=== PATIENT | male | born 1955 ===

== ENCOUNTER 2017-11-14 19:10 | Inpatient (IN) ==
[2017-11-14 19:57] LABS: Hematocrit 45.6 % (37.5-50.1); Hemoglobin 15.2 g/dL (12.9-16.9); Immature Granulocytes % 0.2 % (0-4); Lymphocytes % 31.9 %; Mean Corpuscular HGB Conc 33.3 g/dL (31.6-35.5); Mean Corpuscular Hemoglobin 28.4 pg (28.0-33.3); Mean Corpuscular Volume 85.2 fL (83.0-100.0); Mean Platelet Volume 10.1 fL (9.4-12.4); Platelet Count 261 K/mcL (140-400); Red Blood Count 5.35 M/mcL (4.19-5.50); Red Cell Distribution Width 14.6 % (11.5-14.5); Segmented Neutrophils % 59.3 %
[2017-11-14 19:58] LABS: Basophils % 0.3 %; Eosinophils # 0.1 K/mcL (0.0-0.6); Eosinophils % 1.3 %; Lymphocytes # 3.3 K/mcL (0.6-4.6); Monocytes # 0.7 K/mcL (0.0-1.3); Neutrophils # 6.1 K/mcL (1.6-8.9)
[2017-11-14 20:03] LABS: Prothrombin Time 10.9 Seconds (9.4-12.1)
[2017-11-14 20:06] LABS: Activated Partial Thrombo Time 30.4 Seconds (26.0-36.0)
[2017-11-14] MEDS ORDERED: 0.9 % Sodium Chloride 500 ML IVC ONE ×2 (20:09→20:51)
[2017-11-14 20:19] LABS: BUN/Creatinine Ratio 13 (6-26); Blood Urea Nitrogen 21 mg/dL (8-23); Carbon Dioxide 27 mEq/L (23-29); Chloride 99 mEq/L (98-107); Glucose 210 mg/dL (70-105); Osmolality,Calculated 289 (280-300); Potassium 4.4 mEq/L (3.5-5.1); Sodium 135 mEq/L (136-145); Troponin I < 0.03 ng/mL (< 0.04); eGFR For African Americans 54 (> 60); eGFR For Non-African Americans 45 (> 60)
[2017-11-14] MEDS ORDERED: 0.9 % Sodium Chloride 1,000 ML ONE (20:22)
--- NOTE | 2017-11-14 20:29 | Emergency Department Note ---
Disposition Clinical Impression: Orthostatic dizziness, Near syncope Acute renal failure Qualifiers: Acute renal failure type: unspecified Qualified Code(s): N17.9 - Acute kidney failure, unspecified Disposition: Admitted As Inpatient Condition: Good Time of Disposition: 23:33 Dizziness HPI - General Chief Complaint: ED Shortness of Breath/Dyspnea Stated Complaint: short of breath Time Seen by Provider: 11/14/17 20:02 Source: patient, family Limitations: no limitations Nursing Notes Reviewed: Yes Vital Signs Reviewed: Yes - History of Present Illness HPI Narrative: This is a 62 year-old male with history of HTN, HLD, COPD and 4L home O2, CAD/ CT with multiple stents. He presents with orthostatic dizziness for the past 2 weeks, worse today. He says that whenever he stands up, he feels like he's going to pass out. He denies any actual syncopal episodes. He also reports dyspnea and cough, both of which are described as chronic. He has had headaches intermittently for 2-3 days. Also, brief episodes of chest pain, lasting 5-6 minutes, not clearly exertional in nature, described as chronic. He denies any recent fever, abdominal pain, vomiting, diarrhea, hematochezia, melena, leg pain or swelling. Pt Subjective Complaint: dizziness, lightheadedness, near syncope Onset (ago): week(s) (2) Timing: sudden onset, gradual onset Description: lightheadedness, near-syncope History of trauma: No Severity: moderate Improves with: rest Worsens with: position Associated symptoms: Reports: chest pain (brief, intermittent), malaise, shortness of breath (chronic), weakness (generalized). Denies: fever, chills, syncope, vision changes, nausea, vomiting, palpitations - Related Data Home Medications Medication Instructions Recorded Confirmed Aspirin [Lo-Dose Aspirin EC] 81 mg PO DAILY 11/15/17 11/15/17 Atorvastatin Calcium [Lipitor] 60 mg PO DAILY 11/15/17 11/15/17 Cholecalciferol (Vitamin D3) 1,000 unit PO DAILY 11/15/17 11/15/17 [Vitamin D] Clopidogrel [Plavix] 75 mg PO DAILY 11/15/17 11/15/17 GlipiZIDE [Glipizide Xl] 5 mg PO BID 11/15/17 11/15/17 Magnesium Oxide [Magnesium] 400 mg PO DAILY 11/15/17 11/15/17 Metformin HCl [Glucophage] 1,000 mg PO BID 11/15/17 11/15/17 Metoprolol [Lopressor] 50 mg PO BID 11/15/17 11/15/17 Pantoprazole Sodium [Protonix] 40 mg PO DAILY 11/15/17 11/15/17 Allergies Allergy/AdvReac Type Severity Reaction Status Date / Time nitroglycerin Allergy See Verified 11/14/17 19:33 Comments Penicillins Allergy See Verified 11/14/17 19:33 Comments All systems ED: reviewed and negative except as stated. Constitutional: Reports: as per HPI, weakness (generalized). Denies: fever Cardiovascular: Reports: as per HPI, chest pain (episodic). Denies: palpitations, edema, syncope Respiratory: Reports: cough (chronic), dyspnea (chronic). Denies: wheezes, hemoptysis Gastrointestinal: Reports: as per HPI, abdominal pain. Denies: nausea, vomiting , diarrhea, constipation, hematemesis, melena, hematochezia Musculoskeletal: Denies: back pain Neurological: Reports: as per HPI, headache. Denies: weakness (none focal), numbness (none focal) Past Medical History - Past Medical History Medical history: Reports: COPD, diabetes, hyperlipidemia, hypertension, myocardial infarction - Social History Smoking Status: Current every day smoker Smokeless Tobacco Status: No Alcohol use: Reports: occasionally Drug use: Reports: none Physical Exam - General Limitations: no limitations General appearance: alert, in no apparent distress - Head Head exam: atraumatic, normocephalic - Eye Eye exam: Present: normal appearance, PERRL, EOMI - ENT ENT exam: normal exam - Neck Neck exam: Present: normal inspection. Absent: meningismus - Respiratory Respiratory exam: Present: other (diminished throughout). Absent: respiratory distress, wheezes - Cardiovascular Cardiovascular exam: Present: regular rate, normal rhythm, normal heart sounds - Abdominal Exam Abdominal exam: Present: soft, Non-Tender. Absent: distention, guarding, rebound, rigidity - Extremities Exam Extremities exam: Present: normal inspection. Absent: pedal edema, calf tenderness - Neurological Exam Neurological exam: Present: alert, oriented X3, CN II-XII intact. Absent: motor sensory deficit - Psychiatric Psychiatric exam: Present: flat affect - Skin Skin exam: Present: warm, dry, intact Course - Reevaluation(s) Reevaluation #1: Patient states that he's "feeling a lot better." Awaiting VQ results and UA. Time: 22:33 Reevaluation #2: Discussed test results with patient. He's feeling much better. BP 126/77. Previous BP was normal. Awaiting VQ scan report. Time: 22:48 - Consultations Consultation #1: Reviewed case with Dr. Melgar, and patient accepted for admission. Time: 23:51 Vital Signs Temperature 98 F 11/14/17 19:11 Pulse Rate 107 11/14/17 19:11 Respiratory Rate 20 11/14/17 19:11 Blood Pressure 99/65 11/14/17 19:11 O2 Sat by Pulse Oximetry 99 11/14/17 19:11 Temperature 97.9 F 11/15/17 02:40 Pulse Rate 66 11/15/17 02:40 Respiratory Rate 16 11/15/17 02:40 Blood Pressure 135/75 11/15/17 02:40 O2 Sat by Pulse Oximetry 92 11/15/17 02:40 Oxygen Delivery Oxygen Delivery Room Air Dizziness - Lab Data Lab results reviewed: Yes I reviewed the patient's lab results. Result diagrams: 11/15/17 01:35 11/15/17 01:35 Lab Results 11/14/17 11/14/17 11/14/17 Range/Units 19:27 19:44 19:44 WBC 10.3 (4.3-11.1) K/mcL RBC 5.35 (4.19-5.50) M/mcL Hgb 15.2 (12.9-16.9) g/dL Hct 45.6 (37.5-50.1) % MCV 85.2 (83.0-100.0) fL MCH 28.4 (28.0-33.3) pg MCHC 33.3 (31.6-35.5) g/dL RDW 14.6 H (11.5-14.5) % Plt Count 261 (140-400) K/mcL MPV 10.1 (9.4-12.4) fL Immature Gran % 0.2 (0-4) % Seg Neutrophils % 59.3 % Lymphocytes % 31.9 % Monocytes % 7.0 % Eosinophils % 1.3 % Basophils % 0.3 % Neutrophils # 6.1 (1.6-8.9) K/mcL Lymphocytes # 3.3 (0.6-4.6) K/mcL Monocytes # 0.7 (0.0-1.3) K/mcL Eosinophils # 0.1 (0.0-0.6) K/mcL Basophils # 0.0 (0.0-0.2) K/mcL PT 10.9 (9.4-12.1) Seconds INR 1.0 APTT 30.4 (26.0-36.0) Seconds D-Dimer (0-500) ng/mLFEU Sodium (136-145) mEq/L Potassium (3.5-5.1) mEq/L Chloride (98-107) mEq/L Carbon Dioxide (23-29) mEq/L BUN (8-23) mg/dL Creatinine (0.70-1.30) mg/dL Est GFR ( Amer) (> 60) Est GFR (Non-Af Amer) (> 60) BUN/Creatinine Ratio (6-26) Glucose (70-105) mg/dL Calculated Osmolality (280-300) Lactic Acid 2.8 H (0.5-2.2) mmol/L Calcium (8.6-10.3) mg/dL Magnesium (1.6-2.6) mg/dL Troponin I (< 0.04) ng/mL B-Natriuretic Peptide (Less than 100) pg/mL TSH (0.340-5.600) mcIU/mL Urine Color (Yellow) Urine Clarity (Clear) Urine pH (5.0-8.0) pH Units Ur Specific [place] (1.010-1.025) Urine Protein (Neg-Trace) mg/dL Urine Glucose (UA) (Normal) mg/dL Urine Ketones (Negative) mg/dL Urine Blood (Negative) Urine Nitrite (Negative) Urine Bilirubin (Negative) Urine Urobilinogen (Normal) mg/dL Ur Leukocyte Esterase (Negative) Urine Microscopic RBC (0-3) per hpf Urine Microscopic WBC (0-3) per hpf Ur Squamous Epith Cells (None-Few) per lpf Urine Bacteria (None-Few) per hpf Hyaline Casts (None-Few) per lpf Ur Culture Indicated? (NO) 11/14/17 11/14/17 11/14/17 Range/Units 19:44 19:44 19:44 WBC (4.3-11.1) K/mcL RBC (4.19-5.50) M/mcL Hgb (12.9-16.9) g/dL Hct (37.5-50.1) % MCV (83.0-100.0) fL MCH (28.0-33.3) pg MCHC (31.6-35.5) g/dL RDW (11.5-14.5) % Plt Count (140-400) K/mcL MPV (9.4-12.4) fL Immature Gran % (0-4) % Seg Neutrophils % % Lymphocytes % % Monocytes % % Eosinophils % % Basophils % % Neutrophils # (1.6-8.9) K/mcL Lymphocytes # (0.6-4.6) K/mcL Monocytes # (0.0-1.3) K/mcL Eosinophils # (0.0-0.6) K/mcL Basophils # (0.0-0.2) K/mcL PT (9.4-12.1) Seconds INR APTT (26.0-36.0) Seconds D-Dimer 3337 H (0-500) ng/mLFEU Sodium 135 L (136-145) mEq/L Potassium 4.4 (3.5-5.1) mEq/L Chloride 99 (98-107) mEq/L Carbon Dioxide 27 (23-29) mEq/L BUN 21 (8-23) mg/dL Creatinine 1.58 H (0.70-1.30) mg/dL Est GFR ( Amer) 54 L (> 60) Est GFR (Non-Af Amer) 45 L (> 60) BUN/Creatinine Ratio 13 (6-26) Glucose 210 H (70-105) mg/dL Calculated Osmolality 289 (280-300) Lactic Acid (0.5-2.2) mmol/L Calcium 10.0 (8.6-10.3) mg/dL Magnesium (1.6-2.6) mg/dL Troponin I < 0.03 (< 0.04) ng/mL B-Natriuretic Peptide 42 (Less than 100) pg/mL TSH (0.340-5.600) mcIU/mL Urine Color (Yellow) Urine Clarity (Clear) Urine pH (5.0-8.0) pH Units Ur Specific [place] (1.010-1.025) Urine Protein (Neg-Trace) mg/dL Urine Glucose (UA) (Normal) mg/dL Urine Ketones (Negative) mg/dL Urine Blood (Negative) Urine Nitrite (Negative) Urine Bilirubin (Negative) Urine Urobilinogen (Normal) mg/dL Ur Leukocyte Esterase (Negative) Urine Microscopic RBC (0-3) per hpf Urine Microscopic WBC (0-3) per hpf Ur Squamous Epith Cells (None-Few) per lpf Urine Bacteria (None-Few) per hpf Hyaline Casts (None-Few) per lpf Ur Culture Indicated? (NO) 11/14/17 11/14/17 11/15/17 Range/Units 21:26 21:44 00:03 WBC (4.3-11.1) K/mcL RBC (4.19-5.50) M/mcL Hgb (12.9-16.9) g/dL Hct (37.5-50.1) % MCV (83.0-100.0) fL MCH (28.0-33.3) pg MCHC (31.6-35.5) g/dL RDW (11.5-14.5) % Plt Count (140-400) K/mcL MPV (9.4-12.4) fL Immature Gran % (0-4) % Seg Neutrophils % % Lymphocytes % % Monocytes % % Eosinophils % % Basophils % % Neutrophils # (1.6-8.9) K/mcL Lymphocytes # (0.6-4.6) K/mcL Monocytes # (0.0-1.3) K/mcL Eosinophils # (0.0-0.6) K/mcL Basophils # (0.0-0.2) K/mcL PT (9.4-12.1) Seconds INR APTT (26.0-36.0) Seconds D-Dimer (0-500) ng/mLFEU Sodium (136-145) mEq/L Potassium (3.5-5.1) mEq/L Chloride (98-107) mEq/L Carbon Dioxide (23-29) mEq/L BUN (8-23) mg/dL Creatinine (0.70-1.30) mg/dL Est GFR ( Amer) (> 60) Est GFR (Non-Af Amer) (> 60) BUN/Creatinine Ratio (6-26) Glucose (70-105) mg/dL Calculated Osmolality (280-300) Lactic Acid 1.9 1.1 (0.5-2.2) mmol/L Calcium (8.6-10.3) mg/dL Magnesium (1.6-2.6) mg/dL Troponin I (< 0.04) ng/mL B-Natriuretic Peptide (Less than 100) pg/mL TSH (0.340-5.600) mcIU/mL Urine Color Dark Yellow (Yellow) Urine Clarity Clear (Clear) Urine pH 5.5 (5.0-8.0) pH Units Ur Specific [place] 1.023 (1.010-1.025) Urine Protein Trace (Neg-Trace) mg/dL Urine Glucose (UA) 500 H (Normal) mg/dL Urine Ketones Trace H (Negative) mg/dL Urine Blood Negative (Negative) Urine Nitrite Negative (Negative) Urine Bilirubin Small H (Negative) Urine Urobilinogen Normal (Normal) mg/dL Ur Leukocyte Esterase Negative (Negative) Urine Microscopic RBC 5-15 H (0-3) per hpf Urine Microscopic WBC 3-5 H (0-3) per hpf Ur Squamous Epith Cells Many H (None-Few) per lpf Urine Bacteria None Seen (None-Few) per hpf Hyaline Casts None Seen (None-Few) per lpf Ur Culture Indicated? NO (NO) 11/15/1718 11/15/17 Range/Units 01:35 01:35 01:35 WBC 8.9 (4.3-11.1) K/mcL RBC 4.40 (4.19-5.50) M/mcL Hgb 12.9 D (12.9-16.9) g/dL Hct 37.9 (37.5-50.1) % MCV 86.1 (83.0-100.0) fL MCH 29.3 (28.0-33.3) pg MCHC 34.0 (31.6-35.5) g/dL RDW 14.5 (11.5-14.5) % Plt Count 218 (140-400) K/mcL MPV 10.0 (9.4-12.4) fL Immature Gran % 0.1 (0-4) % Seg Neutrophils % 51.5 % Lymphocytes % 40.1 % Monocytes % 6.5 % Eosinophils % 1.6 % Basophils % 0.2 % Neutrophils # 4.6 (1.6-8.9) K/mcL Lymphocytes # 3.6 (0.6-4.6) K/mcL Monocytes # 0.6 (0.0-1.3) K/mcL Eosinophils # 0.1 (0.0-0.6) K/mcL Basophils # 0.0 (0.0-0.2) K/mcL PT (9.4-12.1) Seconds INR APTT (26.0-36.0) Seconds D-Dimer (0-500) ng/mLFEU Sodium 135 L (136-145) mEq/L Potassium 4.7 (3.5-5.1) mEq/L Chloride 104 (98-107) mEq/L Carbon Dioxide 26 (23-29) mEq/L BUN 24 H (8-23) mg/dL Creatinine 1.32 H (0.70-1.30) mg/dL Est GFR ( Amer) > 60 (> 60) Est GFR (Non-Af Amer) 55 L (> 60) BUN/Creatinine Ratio 18 (6-26) Glucose 137 H (70-105) mg/dL Calculated Osmolality 286 (280-300) Lactic Acid (0.5-2.2) mmol/L Calcium 9.0 (8.6-10.3) mg/dL Magnesium 1.8 (1.6-2.6) mg/dL Troponin I < 0.03 (< 0.04) ng/mL B-Natriuretic Peptide (Less than 100) pg/mL TSH 1.803 (0.340-5.600) mcIU/mL Urine Color (Yellow) Urine Clarity (Clear) Urine pH (5.0-8.0) pH Units Ur Specific [place] (1.010-1.025) Urine Protein (Neg-Trace) mg/dL Urine Glucose (UA) (Normal) mg/dL Urine Ketones (Negative) mg/dL Urine Blood (Negative) Urine Nitrite (Negative) Urine Bilirubin (Negative) Urine Urobilinogen (Normal) mg/dL Ur Leukocyte Esterase (Negative) Urine Microscopic RBC (0-3) per hpf Urine Microscopic WBC (0-3) per hpf Ur Squamous Epith Cells (None-Few) per lpf Urine Bacteria (None-Few) per hpf Hyaline Casts (None-Few) per lpf Ur Culture Indicated? (NO) - Radiology Data Radiology results reviewed: Yes I reviewed the patient's radiology results. NM/NM pul vent and perfuse IMPRESSION: Low probability for pulmonary embolus. XR/XR chest 1V portable IMPRESSION: No acute process. CT/CT head/brain wo con IMPRESSION: No acute intracranial abnormality. - EKG Data EKG attestation: Yes I reviewed and interpreted this EKG. EKG shows normal: sinus rhythm Rate: normal Rhythm: NSR ST segment elevation in: II T wave inversions noted in: aVL When compared to previous EKG there are: no significant changes Interpretation: nonspecific ST-T wave changes
[2017-11-14 21:35] LABS: Bilirubin,Urine Small (Negative); Blood,Urine Negative (Negative); Clarity,Urine Clear (Clear); Color,Urine Dark Yellow (Yellow); Glucose,Urine (UA) 500 mg/dL (Normal); Ketones,Urine Trace mg/dL (Negative); Leukocyte Esterase,Urine Negative (Negative); Nitrite,Urine Negative (Negative); PH,Urine 5.5 pH Units (5.0-8.0); Protein,Urine Trace mg/dL (Neg-Trace); Specific Gravity,Urine 1.023 (1.010-1.025); Urobilinogen,Urine Normal (Normal)
[2017-11-14 21:36] LABS: Bacteria,Urine None Seen per hpf (None-Few); Hyaline Casts,Urine None Seen per lpf (None-Few); Squamous Epithelial Cell,Urine Many per lpf (None-Few)
[2017-11-14] MEDS ORDERED: D5% in Water 1,000 ML IVC PRN (23:55)
[2017-11-14] MEDS ORDERED: Dextrose Gel 15 GM/37.5 ML TUBE PO PRN ×2 (23:55)
[2017-11-14] MEDS ORDERED: *HR* Dextrose 50 % in Water (Syg) 50 ML SYRINGE IVP PRN (23:55)
[2017-11-15] MEDS ORDERED: Acetaminophen 325 MG TABLET PO PRN (00:02)
[2017-11-15] MEDS ORDERED: Naloxone 0.4 MG/ML INJ IVP PRN (00:02)
--- NOTE | 2017-11-15 00:12 | Internal Med History&Physical ---
Date of Encounter: 11/15/17 Time of Encounter: 00:07 Internal Medicine - H&P: HPI Chief complaint: Dizziness Admitted From: Emergency Dept Plans for Post Hospital Care: Home History of present illness: Mr. Willoughby is a 62 year old male with history of HTN, HLD, COPD on nocturnal home O2, CAD/MA with multiple stents who presents with complaints of dizziness for a couple of weeks or so. This has worsened today that he came in to get evaluated. It is usually upon standing. No syncopal episodes. ED reported intermittent chest pain for about 5 min or so with no radiation and non- exertional. The patient denies this to me. Reports dyspnea and a cough but he also says he has a chronic cough and this is not new. Denies fever/chills/nausea /vomiting/diarrhea/constipation/abdominal pain/urinary symptoms/or neurological symptoms. Patient's work up showed TABATHA and lactic acidosis. Lactic acidosis corrected with IV fluids. Patient recieved a couple of boluses in the ED. He was hypotensive into the 80s systolically initially but was in the 120s when I got there. EKG and trops unremarkable. D-dimers were checked and were elevated. No CTA done due to TABATHA. V/Q came back with low probability. UA not indicative of UTI. Past Med Surg Social Fam HX - Past Medical History Medical history: COPD, diabetes, hyperlipidemia, hypertension, myocardial infarction - Social History Smoking Status: Current every day smoker Smokeless Tobacco Status: No Alcohol use: occasionally Drug use: none Internal Medicine - H&P: Meds Aspirin [Lo-Dose Aspirin EC] 81 mg PO DAILY 11/15/17 [History] Atorvastatin Calcium [Lipitor] 60 mg PO DAILY 11/15/17 [History] Cholecalciferol (Vitamin D3) [Vitamin D] 1,000 unit PO DAILY 11/15/17 [History] Clopidogrel [Plavix] 75 mg PO DAILY 11/15/17 [History] GlipiZIDE [Glipizide Xl] 5 mg PO BID 11/15/17 [History] Magnesium Oxide [Magnesium] 400 mg PO DAILY 11/15/17 [History] Metformin HCl [Glucophage] 1,000 mg PO BID 11/15/17 [History] Metoprolol [Lopressor] 50 mg PO BID 11/15/17 [History] Pantoprazole Sodium [Protonix] 40 mg PO DAILY 11/15/17 [History] 3 Allergy/AdvReac Type Severity Reaction Status Date / Time nitroglycerin Allergy See Verified 11/14/17 19:33 Comments Penicillins Allergy See Verified 11/14/17 19:33 Comments All Systems PM: A 10-system review of systems was performed and is negative for pertinent findings except as documented above in the HPI. Review of systems: All systems reviewed are negative except for mentioned above - Constitutional Vitals: Temp Pulse Resp BP Pulse Ox 98 F 68 12 137/73 94 11/14/17 19:31 11/14/17 22:57 11/14/17 22:57 11/14/17 22:57 11/14/17 22:57 Exam: GEN: NAD HEENT: AT, NC, No cyanosis, oral mucosa is moist, No JVD Lymphatics: No lymphadenoapthy Eyes: Extrocular muscles intact, anicteric CVS:RRR. S1, S2, No m/r/g RESP: CTAB ABD: Soft, NT, ND, +BS EXT: No edema, No rashes, 2+ DP NEURO: Nonfocal, CN II-XII intact, No focal motor or sensory deficits Psych: Cooperative, Not anxious or depressed Internal Med - H&P Results - Labs CBC & Chem 7: 11/14/17 19:44 11/14/17 19:44 Labs: Short CBC 11/14/17 Range/Units 19:44 WBC 10.3 (4.3-11.1) K/mcL Hgb 15.2 (12.9-16.9) g/dL Hct 45.6 (37.5-50.1) % Plt Count 261 (140-400) K/mcL Neutrophils # 6.1 (1.6-8.9) K/mcL BMP 11/14/17 19:44 Sodium 135 L Potassium 4.4 Chloride 99 Carbon Dioxide 27 BUN 21 Creatinine 1.58 H Glucose 210 H Calcium 10.0 Cardiac Enzymes 11/14/17 Range/Units 19:44 Troponin I < 0.03 (< 0.04) ng/mL Urine 11/14/17 Range/Units 21:26 Urine Color Dark Yellow (Yellow) Urine Clarity Clear (Clear) Urine pH 5.5 (5.0-8.0) pH Units Ur Specific [place] 1.023 (1.010-1.025) Urine Protein Trace (Neg-Trace) mg/dL Urine Glucose (UA) 500 H (Normal) mg/dL - Impressions ITS Impressions Chest X-Ray 11/14/17 19:44 IMPRESSION: No acute process. D/ / You Hernández MD / You Hernández MD Interpreting Provider: You Hernández MD Head CT 11/14/17 21:13 IMPRESSION: No acute intracranial abnormality. D/ / Danie Mayen MD / Danie Mayen MD Interpreting Provider: Danie Mayen MD Pulmonary Perfusion Imaging 11/14/17 21:15 IMPRESSION: Low probability for pulmonary embolus. D/ / Danie Mayen MD / Danie Mayen MD Interpreting Provider: Danie Mayen MD - Assessment and plan (1) Orthostatic dizziness Current Visit: Yes Status: Acute Assessment and plan: Patient likely has orthostatic hypotension causing his symptoms. We will check orthostatics. Check TSH. Check echocardiogram. No signs of infection. EKG is sinus rhythm with no ischemic changes. No arrhythmias noted. We will place the patient on telemetry and trend his cardiac enzymes. The patient will need to be hydrated and have started him on in his fluids. He received a couple of boluses in the ED. Antihypertensives may need to be adjusted prior to discharge. (2) Acute renal failure Current Visit: Yes Status: Acute Assessment and plan: Likely secondary to hypotension. Hold nephrotoxins. IV fluids. Labs in the a.m. Qualifiers: Acute renal failure type: unspecified Qualified Code(s): N17.9 - Acute kidney failure, unspecified (3) Lactic acidosis Current Visit: Yes Status: Acute Assessment and plan: Resolved with hydration. (4) CAD (coronary artery disease) Current Visit: Yes Status: Acute Assessment and plan: Continue with cardiac meds but hold beta dann and lisinopril for now given hypotension. Qualifiers: Coronary Disease-Associated Artery/Lesion type: [place] artery [place] vs. transplanted heart: [place] heart Associated angina: without angina Qualified Code(s): I25.10 - Atherosclerotic heart disease of [place] coronary artery without angina pectoris (5) COPD (chronic obstructive pulmonary disease) Current Visit: Yes Status: Acute Assessment and plan: Resume home inhalers. Patient is not in exacerbation. Qualifiers: COPD type: emphysema Emphysema type: unspecified Qualified Code(s): J43.9 - Emphysema, unspecified (6) HTN (hypertension) Current Visit: Yes Status: Acute Assessment and plan: Hold antihypertensives for now. Qualifiers: Hypertension type: essential hypertension Qualified Code(s): I10 - Essential (primary) hypertension (7) Diabetes mellitus Current Visit: Yes Status: Acute Assessment and plan: We will place the patient on insulin sliding scale. Accu-Cheks. Qualifiers: Diabetes mellitus type: type 2 Diabetes mellitus usp insulin use: without usp use Diabetes mellitus complication status: without complication Qualified Code(s): E11.9 - Type 2 diabetes mellitus without complications (8) DVT prophylaxis Current Visit: Yes Status: Acute Assessment and plan: Heparin subcutaneous - Time Spent With Patient Total time spent is greater than 50% in coordination of care (as documented) at patient's floor/unit and/or counseling patient:
[2017-11-15 01:54] LABS: Basophils % 0.2 %; Eosinophils # 0.1 K/mcL (0.0-0.6); Eosinophils % 1.6 %; Hematocrit 37.9 % (37.5-50.1); Immature Granulocytes % 0.1 % (0-4); Lymphocytes # 3.6 K/mcL (0.6-4.6); Lymphocytes % 40.1 %; Mean Corpuscular Hemoglobin 29.3 pg (28.0-33.3); Mean Corpuscular Volume 86.1 fL (83.0-100.0); Monocytes # 0.6 K/mcL (0.0-1.3); Monocytes % 6.5 %; Neutrophils # 4.6 K/mcL (1.6-8.9); Platelet Count 218 K/mcL (140-400); Red Cell Distribution Width 14.5 % (11.5-14.5); Segmented Neutrophils % 51.5 %
[2017-11-15 01:58] LABS: Hemoglobin 12.9 g/dL (12.9-16.9)
[2017-11-15 02:16] LABS: BUN/Creatinine Ratio 18 (6-26); Blood Urea Nitrogen 24 mg/dL (8-23); Carbon Dioxide 26 mEq/L (23-29); Chloride 104 mEq/L (98-107); Glucose 137 mg/dL (70-105); Magnesium 1.8 mg/dL (1.6-2.6); Osmolality,Calculated 286 (280-300); Potassium 4.7 mEq/L (3.5-5.1); Sodium 135 mEq/L (136-145); eGFR For African Americans > 60 (> 60); eGFR For Non-African Americans 55 (> 60)
[2017-11-15 02:28] LABS: Thyroid Stimulating Hormone 1.803 mcIU/mL (0.340-5.600)
[2017-11-15] MEDS: *HR* Heparin 5,000 UNIT/ML VIAL SQ SCH ×3 (05:42→21:48)
[2017-11-15] MEDS: 0.9 % Sodium Chloride 1,000 ML IVC SCH ×2 (05:43→15:53)
[2017-11-15] MEDS: Insulin LISPRO 300 UNITS/3 ML VIAL SQ SCH ×4 (08:59→21:47)
[2017-11-15] MEDS: Aspirin Enteric Coated 81 MG Tablet PO SCH (08:59)
--- NOTE | 2017-11-15 09:33 | Event Note ---
Date of Encounter: 11/15/17 Time of Encounter: 09:29 Seen patient Hx of CAD/LA s/p stents, TIA, COPD on 2 L [facility] patient Presenting with: TABATHA Hypotensive, dizziness - symptomatic - no overt localizing source or explanation for pre-renal TABATHA, hypotension, dizziness - sepsis screen negative to date - blood cx pend Trial IVF to replete vol for now Trend labs
[2017-11-15] MEDS: Cholecalciferol (D-3) 1,000 UNIT TABLET PO SCH (12:36)
--- NOTE | 2017-11-15 17:17 | Electrocardiograph Report ---
[place] [id number] Test Date: 2017-11-14 Pat Name: Cayden Willoughby Department: 103 Room: [facility] Gender: M [employer]rer Journe[employer]: : 1955 Requested By: Mina Menard Order Number: [id number] Reading MD: Heike Smith Measurements Intervals [place] Rate: 83 P: 63 UT: 164 QRS: 64 QRSD: 89 T: 75 QT: 343 QTc: 383 Interpretive Statements SINUS RHYTHM ABNORMAL ST SEGMENTS INFERIORLY (PREVIOUSLY SEEN) RECOMMEND CLINICAL CORRELATION Electronically Signed On 11-15-2017 17:15:59 EDT by Heike Smith
[2017-11-16] MEDS: *HR* Heparin 5,000 UNIT/ML VIAL SQ SCH ×3 (05:39→22:28)
[2017-11-16] MEDS: 0.9 % Sodium Chloride 1,000 ML IVC SCH ×2 (05:39→14:26)
[2017-11-16] MEDS: Cholecalciferol (D-3) 1,000 UNIT TABLET PO SCH (08:09)
[2017-11-16] MEDS: Insulin LISPRO 300 UNITS/3 ML VIAL SQ SCH ×4 (08:09→22:27)
[2017-11-16] MEDS: Aspirin Enteric Coated 81 MG Tablet PO SCH (08:09)
[2017-11-16 08:12] LABS: Basophils % 0.4 %; Eosinophils # 0.2 K/mcL (0.0-0.6); Eosinophils % 3.8 %; Hematocrit 38.2 % (37.5-50.1); Hemoglobin 12.7 g/dL (12.9-16.9); Immature Granulocytes % 0.4 % (0-4); Lymphocytes # 2.4 K/mcL (0.6-4.6); Mean Corpuscular HGB Conc 33.2 g/dL (31.6-35.5); Mean Corpuscular Hemoglobin 28.5 pg (28.0-33.3); Mean Corpuscular Volume 85.8 fL (83.0-100.0); Mean Platelet Volume 9.9 fL (9.4-12.4); Monocytes # 0.5 K/mcL (0.0-1.3); Monocytes % 8.3 %; Neutrophils # 2.4 K/mcL (1.6-8.9); Platelet Count 201 K/mcL (140-400); Red Blood Count 4.45 M/mcL (4.19-5.50); Red Cell Distribution Width 14.6 % (11.5-14.5); Segmented Neutrophils % 43.1 %
[2017-11-16 08:21] LABS: BUN/Creatinine Ratio 14 (6-26); Blood Urea Nitrogen 12 mg/dL (8-23); Carbon Dioxide 27 mEq/L (23-29); Chloride 105 mEq/L (98-107); Glucose 199 mg/dL (70-105); Osmolality,Calculated 289 (280-300); Potassium 4.3 mEq/L (3.5-5.1); Sodium 137 mEq/L (136-145); eGFR For African Americans > 60 (> 60); eGFR For Non-African Americans > 60 (> 60)
--- NOTE | 2017-11-16 16:07 | Internal Med Progress Note ---
Date of Encounter: 11/16/17 Time of Encounter: 16:03 - Assessment and plan (1) Orthostatic dizziness Current Visit: Yes Status: Acute Assessment and plan: Symptoms have improved-most likely related to orthostatic hypotension. IV fluids have been stopped- we will monitor blood pressure without IV fluids. He continues to have blood pressure drop with position change. We will continue to hold antihypertensive Recheck orthostatics in a.m. (2) Acute renal failure Current Visit: Yes Status: Acute Assessment and plan: Secondary to hypotension-IV fluids have been stopped we will recheck in a.m. Avoid nephrotoxins Qualifiers: Acute renal failure type: unspecified Qualified Code(s): N17.9 - Acute kidney failure, unspecified (3) CAD (coronary artery disease) Current Visit: Yes Status: Acute Assessment and plan: Continue with cardiac meds but hold beta dann and lisinopril on hold due to hypotension. No chest pains this time nitroglycerin as needed Continuous cardiac monitoring Qualifiers: Coronary Disease-Associated Artery/Lesion type: [place] artery [place] vs. transplanted heart: [place] heart Associated angina: without angina Qualified Code(s): I25.10 - Atherosclerotic heart disease of [place] coronary artery without angina pectoris (4) COPD (chronic obstructive pulmonary disease) Current Visit: Yes Status: Acute Assessment and plan: Resume home inhalers. Stable at this time. Qualifiers: COPD type: emphysema Emphysema type: unspecified Qualified Code(s): J43.9 - Emphysema, unspecified (5) HTN (hypertension) Current Visit: Yes Status: Acute Assessment and plan: Hold antihypertensives for now. Qualifiers: Hypertension type: essential hypertension Qualified Code(s): I10 - Essential (primary) hypertension (6) Lactic acidosis Current Visit: Yes Status: Resolved Assessment and plan: Resolved with hydration. (7) DVT prophylaxis Current Visit: Yes Status: Acute Assessment and plan: Heparin subcutaneous (8) Diabetes mellitus Current Visit: Yes Status: Acute Assessment and plan: We will place the patient on insulin sliding scale. Accu-Cheks. Qualifiers: Diabetes mellitus type: type 2 Diabetes mellitus computer terminal operator insulin use: without computer terminal operator use Diabetes mellitus complication status: without complication Qualified Code(s): E11.9 - Type 2 diabetes mellitus without complications - Time Spent With Patient Total time spent is greater than 50% in coordination of care (as documented) at patient's floor/unit and/or counseling patient: - Subjective Interval history: Patient was seen and examined at bedside earlier this a.m. He denies any dizziness at the time-we will have nursing ambulate patient. He continues to have a drop in blood pressure with position change. Updated patient on treatment plan - Constitutional Vitals: Temp Pulse Resp BP Pulse Ox 97.6 F 69 16 147/78 92 11/16/17 15:11 11/16/17 15:11 11/16/17 15:11 11/16/17 15:11 11/16/17 15:11 General appearance: Present: A&O X 3 - Head Head exam: Present: atraumatic, normocephalic - Eye Eye exam: Present: PERRL, conjuntiva pink, sclera anicteric Pupils: Present: PERRL - Neck Neck exam general surgery: Present: supple, trachea midline. Absent: lymphadenopathy - Respiratory Respiratory exam: Present: CTAB. Absent: accessory muscle use, rales, rhonchi, wheezes - Cardiovascular Cardiovascular exam: Present: RRR, +S1, +S2. Absent: diastolic murmur, gallop, rubs, systolic murmur - GI/Abdominal GI/Abdominal exam: Present: normal bowel sounds, soft, no peritoneal signs. Absent: distended, tenderness - Extremities Exam Extremities exam: Present: warm, radial pulses palpable and symmetrical. Absent : calf tenderness, cyanotic, pedal edema - Neurological Exam Neurological exam: Present: CN II-XII intact, oriented X3, no focal deficits. Absent: pronater drift, facial droop, speech deficit - Skin Skin exam: Present: dry, intact Internal Medicine: Result - Labs CBC & Chem 7: 11/16/17 07:48 11/16/17 07:48 Labs: Short CBC 11/16/17 Range/Units 07:48 WBC 5.5 (4.3-11.1) K/mcL Hgb 12.7 L (12.9-16.9) g/dL Hct 38.2 (37.5-50.1) % Plt Count 201 (140-400) K/mcL Neutrophils # 2.4 (1.6-8.9) K/mcL BMP 11/16/17 07:48 Sodium 137 Potassium 4.3 Chloride 105 Carbon Dioxide 27 BUN 12 Creatinine 0.85 Glucose 199 H Calcium 9.0 - ABG Interpretation ABG results: PT/INR, D-dimer PT 10.9 Seconds (9.4-12.1) 11/14/17 19:44 D-Dimer 3337 ng/mLFEU (0-500) H 11/14/17 19:44 Consult Discharge Plan - Plan Referrals: [facility] [Primary Care Provider] - 11/22/17 10:45 am
[2017-11-17] MEDS: *HR* Heparin 5,000 UNIT/ML VIAL SQ SCH (06:40)
[2017-11-17 07:51] LABS: Basophils % 0.6 %; Eosinophils # 0.2 K/mcL (0.0-0.6); Eosinophils % 3.3 %; Hematocrit 38.3 % (37.5-50.1); Immature Granulocytes % 0.2 % (0-4); Lymphocytes # 2.7 K/mcL (0.6-4.6); Lymphocytes % 40.8 %; Mean Corpuscular HGB Conc 33.9 g/dL (31.6-35.5); Mean Corpuscular Volume 85.3 fL (83.0-100.0); Mean Platelet Volume 10.2 fL (9.4-12.4); Monocytes # 0.5 K/mcL (0.0-1.3); Monocytes % 7.8 %; Neutrophils # 3.2 K/mcL (1.6-8.9); Platelet Count 213 K/mcL (140-400); Red Blood Count 4.49 M/mcL (4.19-5.50); Red Cell Distribution Width 14.5 % (11.5-14.5); Segmented Neutrophils % 47.3 %
[2017-11-17 07:52] LABS: BUN/Creatinine Ratio 17 (6-26); Blood Urea Nitrogen 12 mg/dL (8-23); Calcium 9.2 mg/dL (8.6-10.3); Carbon Dioxide 26 mEq/L (23-29); Chloride 105 mEq/L (98-107); Glucose 192 mg/dL (70-105); Osmolality,Calculated 291 (280-300); Sodium 138 mEq/L (136-145); eGFR For African Americans > 60 (> 60); eGFR For Non-African Americans > 60 (> 60)
[2017-11-17] MEDS: Aspirin Enteric Coated 81 MG Tablet PO SCH (08:06)
[2017-11-17] MEDS: Cholecalciferol (D-3) 1,000 UNIT TABLET PO SCH (08:06)
[2017-11-17] MEDS: Insulin LISPRO 300 UNITS/3 ML VIAL SQ SCH ×2 (08:08→11:39)
[2017-11-17] MEDS ORDERED: Lisinopril 20 MG TABLET PO SCH (10:30)
--- NOTE | 2017-11-17 10:38 | Discharge Summary ---
- NOTES TO OUTPATIENT PROVIDER Notes to Outpatient Provider: Patient experiencing orthostatic hypotension, di hold BP meds and give fluids. Symptoms improved, restarted lisinopril at lower dose Holding metoprolol dt low HR BP, advised patient to monitor VS daily and keep a log-. TABATHA- improved-monitor labs Orders not resulted at time of discharge: Pending orders 11/18/17 04:00 Basic Metabolic Panel AM 0400 CBC [Complete Blood Count] [HEME] AM 0400 Date of Encounter: 11/17/17 Time of Encounter: 10:34 - Discharge Diagnosis (1) Orthostatic dizziness Priority: Primary Status: Acute (2) Acute renal failure Priority: Secondary Status: Acute Qualifiers: Acute renal failure type: unspecified Qualified Code(s): N17.9 - Acute kidney failure, unspecified (3) CAD (coronary artery disease) Priority: Secondary Status: Acute Qualifiers: Coronary Disease-Associated Artery/Lesion type: [place] artery [place] vs. transplanted heart: [place] heart Associated angina: without angina Qualified Code(s): I25.10 - Atherosclerotic heart disease of [place] coronary artery without angina pectoris (4) COPD (chronic obstructive pulmonary disease) Priority: Secondary Status: Acute Qualifiers: COPD type: emphysema Emphysema type: unspecified Qualified Code(s): J43.9 - Emphysema, unspecified (5) HTN (hypertension) Priority: Secondary Status: Acute Qualifiers: Hypertension type: essential hypertension Qualified Code(s): I10 - Essential (primary) hypertension (6) Lactic acidosis Priority: Secondary Status: Resolved (7) Diabetes mellitus Priority: Secondary Status: Acute Qualifiers: Diabetes mellitus type: type 2 Diabetes mellitus moth exterminator insulin use: without skilled nursing use Diabetes mellitus complication status: without complication Qualified Code(s): E11.9 - Type 2 diabetes mellitus without complications Hospital course: Mr. Willoughby is a 62 year old male past medical history of hypertension hyperlipidemia COPD nocturnal home O2 CAD/IL with multiple stents who presents with complaints of dizziness for a couple weeks or so. Patient's initial workup did show a KI and lactic acidosis which was corrected with IV fluids he was hypotensive in the 80s systolically EKG and troponins were unremarkable d- dimer was elevated he completed a VQ scan due to TABATHA which was low probability UA was not indicative of UTI. Patient is on antihypertensive which were held echo showed EF of 55% with indeterminant diastolic function normal right ventricular structure and function and no significant valvular dysfunction and pulmonary hypertension. Her problems were negative [address]-T wave abnormalities He did have positive orthostatics patient was given IV fluids and antihypertensives were held. Patient's blood pressure did improve patient did inflate without any difficulty and symptoms improved. I did initiate patient's lisinopril prior to discharge advised patient to monitor blood pressure. Advised patient to hold metoprolol for now. Patient will follow-up with [facility] physician. Patient verbalized understanding. Lab Work is unremarkable patient is hemodynamically stable and ready for discharge - Time Spent with Patient Total time spent providing and/or coordinating discharge services: - Discharge Medications Prescriptions: Lisinopril [Zestril] 10 mg PO DAILY #30 tablet Home Medications: Albuterol Sulfate [Albuterol Inhaler] 2 puff IH Q4H PRN 11/15/17 [History] Budesonide/Formoterol 160/4.5 [Symbicort 160/4.5] 2 puff IH BIDR 11/15/17 [ History] Clopidogrel [Plavix] 75 mg PO DAILY 11/15/17 [History] Gabapentin [Neurontin] 600 mg PO TID 11/15/17 [History] Metformin HCl [Glucophage] 1,000 mg PO BID 11/15/17 [History] Pantoprazole Sodium [Protonix] 40 mg PO DAILY 11/15/17 [History] Peg 400/Hypromellose/Glycerin [Visine Tired Eye Relief Drop] 1 drop OP TID 11/15 [History] Sertraline [Zoloft] 100 mg PO DAILY 11/15/17 [History] Tiotropium [Spiriva] 18 mcg IH 0700 11/15/17 [History] glipiZIDE [Glipizide] 10 mg PO BID 11/15/17 [History] Lisinopril [Zestril] 10 mg PO DAILY #30 tablet 11/17/17 [Rx] Allergies/Adverse Reactions: 3 Allergy/AdvReac Type Severity Reaction Status Date / Time nitroglycerin Allergy See Verified 11/14/17 19:33 Comments Penicillins Allergy See Verified 11/14/17 19:33 Comments Date of admission: 11/15/17 02:07 [facility] care physician[facility] Consults: 11/15/17 02:56 Consult to Nutrition [CONS] Routine Comment: Consulting Provider: NUTRITION Reason for Dietary Consult: MST Score Consult to Hand Drawer In [CONS] Routine Reason for SW Consult: patient states he has no insurance he goes through the [facility] for medical needs. Discharging clinician: Hina Jones Anticipated date of discharge: 11/17/17 - Constitutional Vitals: Temp Pulse Resp BP Pulse Ox 97.6 F 64 20 145/78 94 11/17/17 07:54 11/17/17 07:54 11/17/17 07:54 11/17/17 07:54 11/17/17 08:13 General appearance: Present: A&O X 3 - Head Head exam: Present: atraumatic, normocephalic - Eye Eye exam: Present: PERRL, conjuntiva pink, sclera anicteric Pupils: Present: PERRL - Neck Neck exam general surgery: Present: supple, trachea midline. Absent: lymphadenopathy - Respiratory Respiratory exam: Present: CTAB. Absent: accessory muscle use, rales, rhonchi, wheezes - Cardiovascular Cardiovascular exam: Present: RRR, +S1, +S2. Absent: diastolic murmur, gallop, rubs, systolic murmur - GI/Abdominal GI/Abdominal exam: Present: normal bowel sounds, soft, no peritoneal signs. Absent: distended, tenderness - Extremities Exam Extremities exam: Present: warm, radial pulses palpable and symmetrical. Absent : calf tenderness, cyanotic, pedal edema - Neurological Exam Neurological exam: Present: CN II-XII intact, oriented X3, no focal deficits. Absent: pronater drift, facial droop, speech deficit - Skin Skin exam: Present: dry, intact - Patient Status Disposition: Home, Self-Care Condition: Good Functional capacity at discharge: independent ambulation Overall status at discharge: patient is back to baseline - Discharge Instructions Instructions: Acute Kidney Injury (DC), Chronic Obstructive Pulmonary Disease ( DC), Chronic Hypertension (DC) Follow Up With: [facility],PCP [Primary Care Provider] - 11/22/17 10:45 am Additional Instructions: Follow-up appointments: If there is not an appointment listed below, please call your physician and schedule a follow-up appointment. If you have congestive heart failure and your symptoms return, make an appointment with your physician. Medication List: Carry an up to date list of medications you are taking at all time. We have given you an updated medication list including any new medications that you have been prescribed. Please provide that list to your primary provider Symptoms: If your condition changes or you experience any of the following symptoms, notify your physician immediately: Unusual or worsening pain, fever, persistent nausea and vomiting, bleeding, increase in swelling (especially in your legs), sudden weight gain, extreme dizziness, chest pain, increased drainage or redness from a wound or incision. Go to the emergency department if you experience a problem with breathing. Weights: If you have a history of swelling or shortness of breath, weigh yourself daily and notify your physician if you have a weight gain of two or more pounds in one day or 5 or more pounds in a week. If you experience any of the warning signs for stroke: Sudden numbness or weakness of the face, arm or leg; especially on one side of the body, sudden confusion, trouble speaking or understanding, sudden trouble seeing in one or both eyes, sudden trouble walking, dizziness, loss of balance or coordination, sudden sever headache with no cause; Call 911 or go to the emergency room. Stroke is a medical emergency. Some risk factors for stroke: Age, cigarette smoking, diabetes, excessive alcohol consumption, family history , high blood pressure, overweight, physical inactivity, prior stroke, heart attack, diagnosis of carotid artery stenosis or other artery disease. If you smoke, STOP: Smoking or tobacco use significantly increases your risk of heart and lung disease. Your chance of disease greatly increases if you continue to smoke. For more information, call the [place] tobacco quit line for smoking cessation QUIT-NOW ( ) - Diet and Activity Activity: increase activity as tolerated Diet: diabetic diet
[2017-11-17 11:32] VITALS: BP 134/80
== END 2017-11-17 12:42 | disposition home or self-care (01) | DRG 312 ==
LOC: EMEROO 19:10 → 2SOUTHHOLD 11-15 02:07 → 3BNU 11-16 06:39
PROVIDERS: ADMIT Internal Medicine; ATTEND Internal Medicine